=== PATIENT | female | born 1955 | race Caucasian/White ===

== ENCOUNTER 2017-05-05 09:19 | Emergency (ER) | payer OTHER ==
--- NOTE | 2017-05-05 10:22 | EDPHY ---
H & P Time Seen by Provider: 05/05/17 10:01 HPI/ROS: CHIEF COMPLAINT: Right knee pain times several days HISTORY OF PRESENT ILLNESS: 61-year-old female with remote history of spontaneous pulmonary embolus, complaining of atraumatic right knee pain for the past several weeks, worse in the past few days. The pain is at the medial aspect of the right knee and is reproducible with range of motion especially with deep knee bends, getting up from bed going upstairs has reproducible pain to the medial aspect. This is also reproducible with specific torquing movement of right knee. It is not reproducible with direct weight-bearing or walking along she is walking on a flat even surface. No peripheral edema or discoloration. No paresthesia. No fever or chills. No flu-like symptoms. Patient has not taken any sana-jzw-zidbygl analgesics or NSAIDs. PRIMARY CARE PROVIDER: Dr. amanda hammer REVIEW OF SYSTEMS: A ten point review of systems was performed and is negative with the exception of the items mentioned in the HPI PHYSICAL EXAM (Prior to examination, patient consented to physical exam, hands were washed and my usual and customary physical exam procedures followed) 1) GENERAL: Well-developed, well-nourished, alert and oriented. Appears to be in no acute distress. 2) HEAD: Normocephalic 3) HEENT: Pupils equal, round, reactive to light bilaterally. 4) LUNGS: Breathing comfortably. 5) MUSCULOSKELETAL: Exam of the right knee shows normal color, normal temperature. No erythema. No discoloration. No tenderness to palpate patient. Range of motion in line elicits no pain however with twisting movements of the tibia and fibula I am able to reproduce medial knee pain. . Compartments are soft. negative Homans no palpable cord 6) SKIN: intact 7) VASCULAR: DP,PT pulses and cap refill present and brisk distally DIFFERENTIAL DIAGNOSIS: in no particular order including but not limited to fracture, sprain, compartment syndrome, septic arthritis, DVT Procedure: Crutches indications for crutch use discussed with patient. Patient fitted for crutches by ER staff. Observed ambulating with crutches. I think the patient has the capacity to safely use crutches. Usual and customary crutch walking precautions provided Procedure: Splint A knee immobilizer splint was applied by ER lot technician. After application of the splint I returned and re-examined the patient. The splint was adequately immobilizing the joint and distal to the splint the patient's circulation and sensation were intact. Patient shows no signs of compartment syndrome. Was given orthopedic precautions. MEDICAL DECISION MAKING Serial evaluations performed on patient. I discussed the limitations of x-ray in diagnosis of knee pain and injury. At this time I do not think that emergent MRI is currently indicated. However, I have recommended follow-up with Orthopedic surgery and provided this referral information. Informed the patient that outpatient MRI may be indicated. I think that septic arthritis is less than likely in this patient. Ultrasound was obtained given her history of spontaneous pulmonary embolus and this was subsequently negative for DVTn however was positive for Rader cyst. Plan will be follow up with Orthopedics on outpatient basis and usual customary orthopedic precautions instructions provided. All questions and concerns addressed by myself. Patient feels comfortable being discharged.Recommended Motrin and Tylenol Smoking Status: Never smoked Constitutional: Initial Vital Signs Temperature (C) 37 C 05/05/17 09:24 Heart Rate 97 05/05/17 09:24 Respiratory Rate 20 05/05/17 09:24 Blood Pressure 129/83 H 05/05/17 09:24 O2 Sat (%) 95 05/05/17 09:24 O2 Delivery Mode Room Air Allergies/Adverse Reactions: No Known Allergies Allergy (Unverified 05/05/17 09:23) Home Medications: Medication Instructions Recorded Acebutolol HCl 05/05/17 DEXILANT 05/05/17 Hydrochlorothiazide 05/05/17 Lisinopril 05/05/17 [facility]/Departure - [facility] Imaging Results: Imaging Impressions Knee X-Ray 05/05/17 10:11 Impression: Tricompartment right knee osteoarthritis, most severe in the medial and patellofemoral compartments. Images reviewed by myself - Depart Disposition: Home, Routine, Self-Care Clinical Impression: Osteoarthritis of right knee Qualifiers: Osteoarthritis type: primary Qualified Code(s): M17.11 - Unilateral primary osteoarthritis, right knee Rader's cyst Qualifiers: Laterality: right Qualified Code(s): M71.21 - Synovial cyst of popliteal space [Rader], right knee Condition: Good Instructions: Osteoarthritis (ED), Bakers Cyst (ED) Additional Instructions: Return to the ER immediately if you experience discoloration, have worsening pain, numbness, tingling, or any other symptoms that concern you. If you received x-rays in the emergency department today, be advised, that ligamentous , tendon, muscular, and other non-bony injury cannot be fully ruled out. Try to keep your affected extremity elevated above the level of your chest, and keep cold packs on the affected area, for the next 48 hours. Adult Pain & Fever Control: We recommend Acetaminophen (Tylenol) and Ibuprofen (Motrin,Advil) for pain and fever control. When fever is high or pain severe, both drugs can be used at the same time, but at different intervals. Please note the time differences. Your dose is: Acetaminophen 650mg every 4 to 6 hours Ibuprofen 600mg every hours with food OR Note: do not take Acetaminophen with Hydrocodone (Vicodin, Lortab) or Oycodone (Percocet). These medications also contain Acetaminophen. No more than 3000mg of Acetaminophen should be taken in 24 hours (for an adult). Referrals: Rikki Birmingham MD [Medical Doctor] - 5-7 days, call for appt. (Dr. Birmingham is orthopedic surgeon [facility])
[2017-05-05 11:28] VITALS: BP 135/45; PULSE 80; RESP 16; TEMP 98.4; O2SAT 97
== END 2017-05-05 11:28 | disposition home or self-care (01) ==
DX: M71.21 Synovial cyst of popliteal space [Baker], right knee (principal); M17.11 Unilateral primary osteoarthritis, right knee

== ENCOUNTER → 2017-05-21 | Outpatient (CLI) | payer OTHER | LOC: BMCIMAGING 09:59 | PROVIDERS: ATTEND Internal Medicine Rheumatology | DX: M25.752 Osteophyte, left hip (principal); M25.751 Osteophyte, right hip; M51.36 Other intervertebral disc degeneration, lumbar region; M51.37 Other intervertebral disc degeneration, lumbosacral region ==

== ENCOUNTER → 2017-12-16 | Outpatient (CLI) | payer OTHER | LOC: BMCIMAGING 09:21 | PROVIDERS: ATTEND Internal Medicine | DX: J98.09 Other diseases of bronchus, not elsewhere classified (principal) ==

== ENCOUNTER → 2018-09-21 | Outpatient (CLI) | payer OTHER | LOC: FIMAGING 06:48 | PROVIDERS: ATTEND Orthopaedic Surgery | DX: Z01.818 Encounter for other preprocedural examination (principal); M17.11 Unilateral primary osteoarthritis, right knee ==

== ENCOUNTER 2018-10-08 09:23 | Observation (INO) | payer OTHER ==
--- NOTE | 2018-10-08 06:41 | PDHPUP ---
History & Physical Update H&P update statement: This history and physical update is based on an assessment of the patient which was completed after admission or registration (within 24 hours), but prior to the surgery/procedure. H&P update: H&P reviewed & patient examined, no change in patient's condition since H&P completed
[~2018-10-08 09:23] MED LIST: ROPIVACAINE 0.2% 80 MG, EPINEPHrine 0.2 MG, KETOROLAC TROMETHAMINE 30 MG in SYRINGE 0 ML IU ONE; TRANEXAMIC ACID 3,000 MG in NS (SYRINGE) 50 ML IRR ONE; TRANEXAMIC ACID 3,000 MG/50 ML BAG IRR ONE
[2018-10-08] MEDS ORDERED: ACETAMINOPHEN 325 MG TAB PO ONE (09:42)
[2018-10-08] MEDS ORDERED: FAMOTIDINE 20 MG TAB PO ONE (09:42)
[2018-10-08] MEDS ORDERED: DEXAMETHASONE 4 MG/ML VIAL IVP ONE (09:42)
[2018-10-08] MEDS ORDERED: ceFAZolin 2 GM/DEXTROSE 100 ML IV ONE (09:42)
[2018-10-08] MEDS ORDERED: LR 1,000 ML IV ONE (10:05)
--- NOTE | 2018-10-08 11:08 | PDANEPAE ---
ANE Past Medical History - Cardiovascular History Hx Hypertension: Yes Hx Arrhythmias: No Hx Chest Pain: No Hx Coronary Artery / Peripheral Vascular Disease: No Hx CHF / Valvular Disease: No Hx Palpitations: No - Pulmonary History Hx COPD: No Hx Asthma/Reactive Airway Disease: No Hx Recent Upper Respiratory Infection: No Hx Oxygen in Use at Home: No Hx Sleep Apnea: No Sleep Apnea Screening Result - Last Documented: Negative Pulmonary History Comment: PE UNKNOWN CAUSE AT THE TIME 2012 TXD W/ANTICOAG TX S 6 MONTHS - Neurologic History Hx Cerebrovascular Accident: No Hx Seizures: No Hx Dementia: No - Endocrine History Hx Diabetes: No - Renal History Hx Renal Disorders: No - Liver History Hx Hepatic Disorders: Yes Hepatic History Comment: MATHIEU - Neurological & Psychiatric Hx Hx Neurological and Psychiatric Disorders: No - Cancer History Hx Cancer: No - Congenital Disorder History Hx Congenital Disorders: No - GI History Hx Gastrointestinal Disorders: Yes Gastrointestinal History Comment: GERD. HIATAL HERNIA - Other Health History Other Health History: GOUT - Chronic Pain History Chronic Pain: Yes (R KNEE) - Surgical History Prior Surgeries: CHOLECYSTECTOMY 2013. COLONOSCOPY ANE Review of Systems Review of Systems: - Exercise capacity METS (RN): 4 METS ANE Patient History - Allergies Allergies/Adverse Reactions: tramadol Allergy (Verified 09/20/18 11:15) "MADE VERY SICK" - Home Medications Home Medications: Acebutolol HCl [Sectral 200 mg (*)] 200 mg PO BID 05/05/17 [Last Taken 10/08/18 07:30] Lisinopril [Zestril 40 mg (*)] 40 mg PO DAILY 05/05/17 [Last Taken Unknown] Naproxen Sodium [Aleve 220 MG (*)] 220 mg PO DAILY PRN 09/17/18 [Last Taken 3 Weeks Ago ~09/17/18] Omeprazole 20 mg PO DAILY PRN 09/17/18 [Last Taken 10/08/18] amLODIPine BESYLATE [Norvasc 5 mg (*)] 5 mg PO DAILY 09/17/18 [Last Taken 07:30] - NPO status NPO Since - Liquids (Date): 10/08/18 NPO Since - Liquids (Time): 08:30 NPO Since - Solids (Date): 10/07/18 NPO Since - Solids (Time): 18:00 - Smoking Hx Smoking Status: Never smoked - Family Anes Hx Family Hx Anesthesia Complications: NEG ANE Labs/Vital Signs - Vital Signs Blood Pressure: 152/96 Heart Rate: 61 Respiratory Rate: 15 O2 Sat (%): 98 Height: 170.82 cm Weight: 107.048 kg ANE Physical Exam - Airway Mallampati Score: Class 2 - ASA Status ASA Status: II ANE Anesthesia Plan Anesthesia Plan: spinal Regional Anesthesia: adductor canal FNB
[2018-10-08] MEDS ORDERED: MIDAZOLAM 2 MG/2 ML VIAL ONE (11:17)
[2018-10-08] MEDS ORDERED: PROPOFOL/EMULSION 500 MG/50 ML BOTTLE IV ONE (11:18)
[2018-10-08] MEDS ORDERED: fentaNYL 100 MCG/2 ML INJ ONE (11:18)
[2018-10-08] MEDS ORDERED: ROPIVACAINE HCL 150 MG/30 ML INJ ONE (11:20)
[2018-10-08] MEDS ORDERED: PHENYLEPHRINE HCL 100 MCG/ML SYR ONE (11:50)
[2018-10-08] MEDS ORDERED: ONDANSETRON 4 MG/2 ML VIAL IVP PRN ×2 (12:52→13:07)
[2018-10-08] MEDS ORDERED: PROMETHAZINE HCL 25 MG/ML INJ IVP PRN (12:52)
[2018-10-08] MEDS ORDERED: ONDANSETRON DISINTEGRATING 4 MG TAB PO PRN (12:52)
[2018-10-08] MEDS ORDERED: POLYETHYLENE GLYCOL 3350 17 GM PKT PO PRN (12:52)
[2018-10-08] MEDS ORDERED: DIPHENOXYLATE/ATROPINE LOMOTIL 1 TAB PO PRN (12:52)
[2018-10-08] MEDS ORDERED: BISACODYL 10 MG SUPP PR PRN (12:52)
[2018-10-08] MEDS ORDERED: LACTULOSE 20 GM/30 ML UDCUP PO PRN (12:52)
[2018-10-08] MEDS ORDERED: diphenhydrAMINE 25 MG CAP PO PRN (12:52)
[2018-10-08] MEDS ORDERED: MAGNESIUM HYDROXIDE 30 ML UDCUP PO PRN (12:52)
[2018-10-08] MEDS ORDERED: METOCLOPRAMIDE 10 MG/2 ML VIAL IVP PRN (12:52)
[2018-10-08] MEDS ORDERED: TEMAZEPAM 15 MG CAP PO PRN (12:52)
[2018-10-08] MEDS ORDERED: PROMETHAZINE HCL 25 MG SUPPR PR PRN (12:52)
--- NOTE | 2018-10-08 12:52 | POSTOPPROG ---
Post Op Note Date of Operation: 10/08/18 Surgeon: Winifred Huitron Bradder: daria huitron PA-C Anesthesiologist: dr. mueller Anesthesia: Spinal, Other (Specify) (adductor canal block) Pre-op Diagnosis: right knee OA Post-op Diagnosis: same Indication: right knee pain Procedure: R TKA robot assisted Findings: severe knee OA Inf/Abcess present in the surg proc area at time of surgery?: No EBL: 50-100
[2018-10-08] MEDS ORDERED: LR 1,000 ML IV SCH (13:00)
[2018-10-08] MEDS ORDERED: LR 500 ML IV PRN (13:07)
[2018-10-08] MEDS ORDERED: PHENYLEPHRINE HCL 100 MCG/ML SYR IVP PRN (13:07)
[2018-10-08] MEDS ORDERED: NALOXONE HCL 0.4 MG/ML INJ IVP PRN (13:07)
[2018-10-08] MEDS ORDERED: fentaNYL 100 MCG/2 ML INJ IVP PRN (13:07)
--- NOTE | 2018-10-08 13:08 | POSTANESTH ---
Post Anesthetic Evaluation Cardiovascular Status: Normal, Stable Respiratory Status: Normal, Stable Level of Consciousness/Mental Status: Can Participate in Eval Pain Control: Adequate, Prn Tx Ordered Nausea/Vomiting Control: Adequate, Prn Tx Ordered Complications Possibly Related to Anesthesia: None Noted
[2018-10-08] MEDS ORDERED: BUPIVACAINE/DEXTROSE 7.5MG/ML 2 ML SPINAL AMP SP ONE (13:22)
[2018-10-08] MEDS: oxyCODONE IR 5 MG TAB PO PRN ×2 (16:19→20:13)
[2018-10-08] MEDS: ACETAMINOPHEN 325 MG TAB PO SCH (17:20)
[2018-10-08] MEDS: CYCLOBENZAPRINE 10 MG TAB PO PRN (17:21)
[2018-10-08] MEDS ORDERED: WARFARIN SODIUM 5 MG TAB PO ONE (17:45)
[2018-10-08] MEDS ORDERED: AMITRIPTYLINE HCL 10 MG TAB PO PRN (18:26)
[2018-10-08] MEDS: ceFAZolin 2 GM/DEXTROSE 100 ML IV SCH (18:32)
[2018-10-08] MEDS: SENNOSIDES/DOCUSATE SODIUM TAB PO SCH (20:13)
[2018-10-08] MEDS: FAMOTIDINE 20 MG TAB PO SCH (20:13)
[2018-10-08] MEDS: ACEBUTOLOL HCL 200 MG CAP PO SCH (21:18)
[2018-10-09] MEDS: ACETAMINOPHEN 325 MG TAB PO SCH ×3 (00:32→11:27)
[2018-10-09] MEDS: oxyCODONE IR 5 MG TAB PO PRN ×4 (00:32→11:28)
[2018-10-09] MEDS: ceFAZolin 2 GM/DEXTROSE 100 ML IV SCH (02:05)
--- NOTE | 2018-10-09 04:43 | GOP ---
DATE OF OPERATION: 10/08/2018 SURGEON: Solomon Erickson MD MUSIC REHABILITATION THERAPIST: SELENE Gallardo PREOPERATIVE DIAGNOSIS: Right knee osteoarthritis. POSTOPERATIVE DIAGNOSIS: Right knee osteoarthritis. PROCEDURE PERFORMED: Right total knee arthroplasty with computer navigation and robotic assist. FINDINGS: ESTIMATED BLOOD LOSS: 30 cc. INDICATIONS: The patient is a 62-year-old female with severe and progressive pain and deformity of the right knee unresponsive to conservative care. The risks and benefits of surgical intervention were explained in detail. DESCRIPTION OF PROCEDURE: The patient was brought to the operative room and placed on the table in the supine position. Spinal anesthesia was induced without difficulty. A pneumatic tourniquet was applied about the right proximal thigh, and the leg was prepped and draped in a sterile fashion. The leg zapata was applied. After exsanguination by elevation the tourniquet was inflated to 275 mmHg. Incision was made anterior medial from the tibial tuberosity to a point 2 cm proximal to the superior pole of the patella. Medial parapatellar arthrotomy was carried out from the superior pole of the patella and posteriorly in line with the fibers of the Type II VMO. The medial collateral ligament was elevated and the infrapatellar fat pad was resected. The patella was everted and the articular surface was excised. A 32 mm patellar button was placed. Attention was turned first to the distal aspect of the femur. After exposure of the femur, 2 half pins were placed for fixation of the femoral array. In a similar fashion, 2 pins were placed anteromedial on the tibia for fixation of the tibial array. External land marking and registration of the hip center were performed without difficulty. Internal femoral and tibial registration was carried out without difficulty and the femoral and tibial checkpoints were placed and verified for accuracy. Attention was turned to the femur. The foot print for the size 3 femoral component was cut with the saw using the [employer] robotic system and verified for accuracy against the CT based plan. In a similar fashion, the saw was used to cut the footprint for the size 4 tibial component using the [employer] system and verified for accuracy against the CT based plan. The tibial articular surface was excised without difficulty, followed by the intercondylar box cut. The knee was extended and the remnants of the medial and lateral meniscus were excised. The posterior capsule was injected with ropivacaine, epinephrine and Toradol. A size 4 mm tibial tray was positioned. Trial reduction was then carried out. There was excellent range of motion, alignment, and stability using the 4.9 mm polyethylene. All trials were then removed. The joint was thoroughly irrigated and carefully dried. The pressfit components were implanted. The permanent 4.9 mm polyethylene was placed without difficulty. The tourniquet was deflated and all bleeders were coagulated. The wound was thoroughly irrigated and closed using interrupted sutures of 2-0 Vicryl for the joint capsule. The subcu was closed with 3-0 Vicryl and the skin with 4-0 Monocryl. Dermabond and Steri-Strips were applied followed by a compressive dressing. The patient was then moved from the operating room to the recovery room in good condition, having tolerated the procedure well. /[id number]/MODL MTDD
[2018-10-09 05:36] LABS: INR 1.03 (0.83-1.16); PROTIME(PATIENT) 13.7 SEC (12.0-15.0)
[2018-10-09 07:18] VITALS: BP 137/81
[2018-10-09] MEDS: ACEBUTOLOL HCL 200 MG CAP PO SCH (07:21)
[2018-10-09] MEDS: FAMOTIDINE 20 MG TAB PO SCH (07:22)
[2018-10-09] MEDS: SENNOSIDES/DOCUSATE SODIUM TAB PO SCH (07:23)
[2018-10-09] MEDS ORDERED: amLODIPine BESYLATE 5 MG TAB PO SCH (09:00)
[2018-10-09] MEDS ORDERED: LISINOPRIL 40 MG TAB PO SCH (09:00)
[2018-10-09] MEDS ORDERED: ENOXAPARIN 40 MG/0.4 ML SYR SC SCH (09:00)
[2018-10-09] MEDS: CYCLOBENZAPRINE 10 MG TAB PO PRN (11:27)
--- NOTE | 2018-10-09 11:48 | SOAPPROG ---
SOAP Progress Note Assessment/Plan: Assessment: Patient is doing well POD 1 s/p RTKA Pain management: pain is well controlled on oral pain meds. VTE ppx: recommend coumadin and lovenox. INR today 1.03, cont MAIN and SCDs Anemia: level is expected initially postop. Asymptomatic. Continue to monitor D/c planning: d/c to home today pending release from PT Plan: 10/09/18 11:47 Subjective: patient is doing well, denies SOB ,chest pain and N/V. Objective: Vital Signs Temp Pulse Resp BP Pulse Ox 36.6 C 66 16 137/81 H 95 10/09/18 07:15 10/09/18 07:15 10/09/18 07:15 10/09/18 07:15 10/09/18 07:15 Laboratory Results 10/09/18 05:00 10/08/18 10/09/18 10/10/18 05:59 05:59 05:59 Intake Total 3610 200 Output Total 2030 300 Balance 1580 -100 PT 13.7 SEC (12.0-15.0) 10/09/18 05:00 INR 1.03 (0.83-1.16) 10/09/18 05:00 RLE; incision dressing is clean and dry, NVI, +pf/df ICD10 Worksheet Patient Problems: Problems Problem Status Onset Primary localized osteoarthritis of right knee Acute
--- NOTE | 2018-10-15 06:05 | GDS ---
ADMISSION DIAGNOSIS: Right knee osteoarthritis. DISCHARGE DIAGNOSIS: Right knee osteoarthritis. PROCEDURE: Right total knee arthroplasty, robotic assisted. VTE PROPHYLAXIS: Recommend Coumadin and Lovenox due to history of PE. BRIEF DESCRIPTION OF HOSPITAL STAY: Patient was admitted for an elective joint arthroplasty. The pa perfecto tolerated the procedure well and has passed physical therapy. The patient was given appropriat e antibiotic prophylaxis and venous thromboembolism prophylaxis. The patient's pain was well control led on oral pain medication, patient was holding down food, and had urinated. Decision was made to d ischarge the patient. The patient was given post-operative prescriptions pre-operatively. PLAN: Please follow up with Dr. Erickson's office October 28 at 11:15 a.m. /[id number]/MODL
== END 2018-10-09 12:44 | disposition home or self-care (01) ==
LOC: F3N 09:23
PROVIDERS: ADMIT Orthopaedic Surgery; ATTEND Orthopaedic Surgery
PROC: 8E0YXCZ Robotic Assisted Procedure of Lower Extremity (ICD-10-PCS; principal; 2018-10-08 12:00)
PROC: 0SRC0JZ Replacement of Right Knee Joint with Synthetic Substitute, Open Approach (ICD-10-PCS; principal; 2018-10-08 12:00)
PROC: 8E0YXBZ Computer Assisted Procedure of Lower Extremity (ICD-10-PCS; principal; 2018-10-08 12:00)
DX: M17.11 Unilateral primary osteoarthritis, right knee (principal); I10 Essential (primary) hypertension; K21.9 Gastro-esophageal reflux disease without esophagitis; M10.9 Gout, unspecified; E66.3 Overweight; Z68.36 Body mass index [BMI] 36.0-36.9, adult; Z79.01 Long term (current) use of anticoagulants; Z86.711 Personal history of pulmonary embolism; Z23 Encounter for immunization
CPT/HCPCS: 20985; 27447; 73560; 90471; 97161; G0378; G0008; J0171; J0690; J1100; J1650; J1885; J2250; J2370; J2704; J2795; J3010

== ENCOUNTER → 2019-04-26 | Outpatient (CLI) | payer OTHER | LOC: FIMAGING 13:43 | PROVIDERS: ATTEND Internal Medicine | DX: Z12.31 Encounter for screening mammogram for malignant neoplasm of breast (principal) ==